=== PATIENT | female | born 1945 | race Caucasian/White ===

== ENCOUNTER → 2016-12-14 | Outpatient (CLI) | payer MEDICARE, OTHER ==
--- NOTE | 2016-12-14 10:48 | RAD ---
Lumbar spine radiographs 12/14/2016 at 1034 hours Indication: Low back pain for years. No recent injury. Comparison: MRI lumbar spine 05/10/2007 Technique: Lumbar spine AP, lateral, bilateral obliques and spot view of the lumbosacral junction provided. Findings: There are 5 non rib bearing lumbar type vertebral bodies. Vertebral body height is maintained. There is disc space narrowing with endplate sclerosis at L1-L2, L4-L5 and L5-S1. Posterior osteophytosis identified at L4-L5 and L5-S1. Anterior marginal osteophytosis is present at T12-L1, L1-L2, L3-L4, L4-L5 and L5-S1. There is minimal anterolisthesis of L3 on L4 and minimal retrolisthesis of L5 on S1, stable dating back to 05/10/2007. There is mild osseous neural foraminal stenosis at L4-L5 and L5-S1. No evidence for a pars defect. Mild degenerative changes of the sacroiliac joints are present. Impression: 1. Moderate multilevel degenerative disc disease, as detailed above. 2. Degenerative minimal anterolisthesis of L3 on L4 and retrolisthesis of L5 and S1 appear unchanged since 05/10/2007.
== END | disposition home or self-care (01) ==
LOC: DXRADRC 10:27
PROVIDERS: ATTEND Physician Assistant Medical
DX: M51.36 Other intervertebral disc degeneration, lumbar region (principal); M48.06 Spinal stenosis, lumbar region
CPT/HCPCS: 72110

== ENCOUNTER → 2017-02-22 | Outpatient (CLI) | payer MEDICARE, OTHER ==
--- NOTE | 2017-02-22 11:48 | RAD ---
Bone densitometry scan, 02/22/2017: History: Ovarian failure, screening The lumbar spine and right hip were examined utilizing a DEXA technique. The bone mineral density in the lumbar spine as measured from the L1-L4 levels is 1.19 g/sq cm. This yields a T score of 0.1 which is in the normal range. The total T score at the right hip is 0.3 which is also in the normal range. IMPRESSION: Normal bone mineral density measurements.
--- NOTE | 2017-03-01 09:28 | RAD ---
DATE: 02/22/2017 EXAM: MAMMO CHELITA SCREENING BILATERAL HISTORY: 71-year-old female presents for screening mammography COMPARISON: 02/19/2016 TECHNIQUE: Full field digital craniocaudal and mediolateral oblique 2-D and 3-D chelita synthesis images of both breasts are obtained. This study was interpreted with the benefit of Computerized Aided Detection (CAD). FINDINGS: The breast parenchyma shows scattered fibroglandular densities. Level B. There is nodular density within the 3:30 o'clock position of the left breast at mid depth, increased in conspicuity compared to the prior study. There is no suspicious calcification or architectural distortion within either breast. IMPRESSION: Nodular density within the 3:30 o'clock position of the left breast, possibly more conspicuous compared to the prior study due to differences in technique. Further evaluation with a left breast sonogram targeted to this location is recommended. BI-RADS CATEGORY: 0 INCOMPLETE: NEEDS ADDITIONAL IMAGING EVALUATION/COMPARISON WITH PRIOR STUDIES RECOMMENDED FOLLOW-UP: ADD ADDITIONAL IMAGING Mammography is a sensitive method for finding small breast cancers, but it does not detect them all and is not a substitute for careful clinical examination. A negative mammogram does not negate a clinically suspicious finding and should not result in delay in biopsying a clinically suspicious abnormality. "Our facility is accredited by the [employer] Mammography [employer]."
== END | disposition home or self-care (01) ==
LOC: MAMMO 09:48
PROVIDERS: ATTEND Physician Assistant Medical
DX: Z01.419 Encounter for gynecological examination (general) (routine) without abnormal findings (principal); Z12.31 Encounter for screening mammogram for malignant neoplasm of breast; Z90.710 Acquired absence of both cervix and uterus; Z78.0 Asymptomatic menopausal state
CPT/HCPCS: 77063; 77080; G0202; 77067

== ENCOUNTER → 2017-03-09 | Outpatient (CLI) | payer MEDICARE, OTHER ==
--- NOTE | 2017-03-09 15:09 | RAD ---
Left breast ultrasound, 03/09/2017: History: Breast nodule Recent CT study demonstrated a fairly smooth 5-6 mm nodule in the inferolateral aspect of the left breast. Today we performed a targeted ultrasound exam of that region. Heterogeneous fatty and fibrous echoes are evident. No discrete breast nodule is identified. IMPRESSION: No sonographic correlate was identified for the mammographically detected small left breast nodule. 3-D mammographic follow-up in 6 months is suggested to establish stability. BI-RADS 3-probably benign findings
== END | disposition home or self-care (01) ==
LOC: US 12:52
PROVIDERS: ATTEND Physician Assistant Medical
DX: R92.8 Other abnormal and inconclusive findings on diagnostic imaging of breast (principal)
CPT/HCPCS: 76641

== ENCOUNTER → 2017-08-17 | Outpatient (CLI) | payer MEDICARE, OTHER ==
--- NOTE | 2017-08-17 13:29 | RAD ---
DATE: 08/17/2017 EXAM: MAMMO CHELITA DIAG LT HISTORY: Follow-up breast nodule COMPARISON: 02/22/2017 This study was interpreted with the benefit of Computerized Aided Detection (CAD). The breast parenchyma shows scattered fibroglandular densities. Breast parenchyma level B. FINDINGS: 2-D and 3-D tomosynthesis imaging of the left breast was performed in CC and MLO projections. There is a small persistent nodule in the left breast just lateral to the midline as best seen on CC chelita image #17. It appears to have decreased slightly in size, currently measuring approximately 6 x 3 mm. No new or enlarging breast densities are seen. Benign type calcifications are noted. No suspicious microcalcifications have developed. IMPRESSION: Slight interval decrease in size of the small left breast nodule favoring a benign etiology. Follow-up bilateral mammography in 6 months is suggested. BI-RADS CATEGORY: 3 PROBABLY BENIGN FINDING(S)-SHORT INTERVAL FOLLOW-UP SUGGESTED RECOMMENDED FOLLOW-UP: 6M 6 MONTH FOLLOW-UP PQRS compliance statement: Patient information was entered into a reminder system with a target due date for the next mammogram. Mammography is a sensitive method for finding small breast cancers, but it does not detect them all and is not a substitute for careful clinical examination. A negative mammogram does not negate a clinically suspicious finding and should not result in delay in biopsying a clinically suspicious abnormality. "Our facility is accredited by the [employer] Mammography [employer]."
== END | disposition home or self-care (01) ==
LOC: MAMMO 12:45
PROVIDERS: ATTEND Physician Assistant Medical
DX: N63.20 Unspecified lump in the left breast, unspecified quadrant (principal); R92.1 Mammographic calcification found on diagnostic imaging of breast
CPT/HCPCS: 77065; G0279; 77061

== ENCOUNTER → 2018-03-08 | Outpatient (CLI) | payer MEDICARE, OTHER ==
--- NOTE | 2018-03-08 14:46 | RAD ---
DATE: 03/08/2018 EXAM: MAMMO CHELITA DIAG BILAT HISTORY: Follow-up breast nodule COMPARISON: 08/17/2017, 02/22/2017 This study was interpreted with the benefit of Computerized Aided Detection (CAD). Breast Density: SCATTERED The breast parenchyma shows scattered fibroglandular densities. Breast parenchyma level B. FINDINGS: 2-D and 3-D tomosynthesis imaging was performed in CC and MLO projections. There is a small persistent smooth elongated nodule in the left breast just lateral to the midline. It is unchanged since 08/17/2017 and appears smaller than on the 02/22/2017 exam, favoring a benign etiology. No new or enlarging breast densities are seen. Benign type calcifications are present. No suspicious microcalcifications have developed. IMPRESSION: No mammographic evidence of malignancy or breast. BI-RADS CATEGORY: 2 BENIGN FINDING(S) RECOMMENDED FOLLOW-UP: 12M 12 MONTH FOLLOW-UP PQRS compliance statement: Patient information was entered into a reminder system with a target due date for the next mammogram. Mammography is a sensitive method for finding small breast cancers, but it does not detect them all and is not a substitute for careful clinical examination. A negative mammogram does not negate a clinically suspicious finding and should not result in delay in biopsying a clinically suspicious abnormality. "Our facility is accredited by the [employer] Mammography [employer]."
== END | disposition home or self-care (01) ==
LOC: MAMMO 13:48
PROVIDERS: ATTEND Physician Assistant Medical
DX: R92.8 Other abnormal and inconclusive findings on diagnostic imaging of breast (principal)
CPT/HCPCS: 77066; G0279; 77062

== ENCOUNTER → 2018-12-19 | Outpatient (CLI) | payer MEDICARE, OTHER ==
--- NOTE | 2018-12-19 16:10 | RAD ---
3 VIEW STUDY OF BOTH KNEES Clinical indications: Degenerative joint disease of the knee. Right knee: No acute fracture or dislocation or lytic process is seen. There is moderate degenerative spurring with mild joint space narrowing of the medial tibiofemoral joint compartment. There is moderate degenerative spurring without joint space narrowing of the lateral tibiofemoral joint compartment. There is mild degenerative spurring of the patellofemoral joint compartment. Left knee: No acute fracture or dislocation or lytic process is seen. There is no significant degenerative joint space narrowing of the medial or lateral tibial femoral joint compartments. There is mild degenerative spurring of the lateral tibiofemoral joint compartment. There is mild degenerative spurring of the patellofemoral joint compartment. IMPRESSION: Tricompartmental primary degenerative osteoarthritis of the right knee. Bicompartmental primary degenerative osteoarthritis of the left knee. AP VIEW OF THE PELVIS AND TWO-VIEW STUDY OF THE RIGHT HIP Clinical indications: Right hip pain. FINDINGS: There is moderate joint space narrowing and subchondral sclerosis and moderate spurring of the right hip joint. Similar findings are seen involving the left hip joint. No acute fracture or dislocation or lytic process is seen. IMPRESSION: Primary degenerative osteoarthritis of both hips which is worse on the right side. Electronically signed by: Jae Tim MD (12/19/2018 4:07 PM) [id number]
== END | disposition home or self-care (01) ==
LOC: PMG 10:25
PROVIDERS: ATTEND Physician Assistant Medical
DX: M17.0 Bilateral primary osteoarthritis of knee (principal); M16.0 Bilateral primary osteoarthritis of hip
CPT/HCPCS: 73502; 73562

== ENCOUNTER → 2019-03-09 | Outpatient (CLI) | payer MEDICARE, OTHER ==
--- NOTE | 2019-03-09 19:40 | RAD ---
DATE: 03/09/2019 EXAM: MAMMO CHELITA SCREENING BILATERAL HISTORY: Routine screening COMPARISON: 03/08/2018 02/22/2017 02/19/2016 mammographic exams This study was interpreted with the benefit of Computerized Aided Detection (CAD). Breast Density: SCATTERED The breast parenchyma shows scattered fibroglandular densities. Breast parenchyma level B. FINDINGS: Benign calcifications are present. No new mass, calcification, or distortion. IMPRESSION: Stable BI-RADS CATEGORY: 1 NEGATIVE RECOMMENDED FOLLOW-UP: 12M 12 MONTH FOLLOW-UP PQRS compliance statement: Patient information was entered into a reminder system with a target due date for the next mammogram. Mammography is a sensitive method for finding small breast cancers, but it does not detect them all and is not a substitute for careful clinical examination. A negative mammogram does not negate a clinically suspicious finding and should not result in delay in biopsying a clinically suspicious abnormality. "Our facility is accredited by the [employer] Mammography [employer]."
== END | disposition home or self-care (01) ==
LOC: MAMMO 12:53
PROVIDERS: ATTEND Physician Assistant Medical
DX: Z12.31 Encounter for screening mammogram for malignant neoplasm of breast (principal)
CPT/HCPCS: 77063; 77067

== ENCOUNTER → 2020-03-13 | Outpatient (CLI) | payer MEDICARE, OTHER ==
--- NOTE | 2020-03-13 14:21 | RAD ---
DATE: 03/13/2020 9:18 AM EXAM: MAMMO CHELITA SCREENING BILATERAL HISTORY: Screening COMPARISON: March 09, 2019 Bilateral CC and MLO views of the breasts were performed. Bilateral breast tomosynthesis was performed in CC and MLO projections. This study was interpreted with the benefit of Computerized Aided Detection (CAD). FINDINGS: Breast Density: SCATTERED The breast parenchyma shows scattered fibroglandular densities. Breast parenchyma level B No suspicious masses, microcalcifications or architectural distortion is present to suggest malignancy in either breast. The visualized axillae are unremarkable. IMPRESSION: No mammographic evidence of malignancy. BI-RADS CATEGORY: 1 NEGATIVE RECOMMENDED FOLLOW-UP: Annual screening mammography is recommended, unless clinically indicated sooner based on symptoms or change in physical exam. PQRS compliance statement: Patient information was entered into a reminder system with a target due date for the next mammogram. Mammography is a sensitive method for finding small breast cancers, but it does not detect them all and is not a substitute for careful clinical examination. A negative mammogram does not negate a clinically suspicious finding and should not result in delay in biopsying a clinically suspicious abnormality. "Our facility is accredited by the [employer] Mammography [employer]." [facility]
== END ==
LOC: MAMMO 09:10
PROVIDERS: ATTEND Physician Assistant Medical
DX: Z12.31 Encounter for screening mammogram for malignant neoplasm of breast (principal)
CPT/HCPCS: 77063; 77067

== ENCOUNTER → 2021-03-26 | Outpatient (CLI) | payer MEDICARE, OTHER ==
--- NOTE | 2021-03-27 08:45 | RAD ---
Bilateral digital screening 2-D and 3-D (digital breast tomosynthesis) mammogram: Reason for examination: Routine screening. Comparison: Mammograms from 03/23/2020 and 03/08/2018. Interpretation was made with the benefit of CAD. FINDINGS: Breast density: Category A. Breast tissue is almost entirely fatty. No suspicious breast mass, malignant appearing calcifications, or architectural distortion is seen. IMPRESSION: No evidence of malignancy. Assessment: BI-RADS 1. Negative. Recommendation: Routine screening mammograms. The patient will receive a letter with the results in the mail. Patient information will be entered i nto the mammography reminder system with a target recall date for the next mammogram. A reminder lakeisha er will be generated. Electronically signed by: Giselle Wood MD (03/27/2021 8:43 AM) [id number]
== END ==
LOC: MAMMO 08:15
PROVIDERS: ATTEND Physician Assistant Medical
DX: Z12.31 Encounter for screening mammogram for malignant neoplasm of breast (principal)
CPT/HCPCS: 77063; 77067